=== PATIENT | male | born 1965 | race Caucasian/White ===

== ENCOUNTER 2016-06-23 13:48 | Emergency (ER) | payer MEDICARE ==
[~2016-06-23] VITALS: Ht 175.3 cm; Wt 100.0 kg
[~2016-06-23 13:48] MED LIST: ALBUTEROL0.83 MG/ML IH; ANTIVERT 25MG25 MG PO; ASPIR-LOW81 MG PO; ASPIRIN E.C. 8181 MG PO; CARDIZEM CD 12120 MG PO; CIPRO PO; CLEOCIN HC150 MG/CAP PO; COMBIRESP IH; COMBIVENT INH14.7 GM IH; DULERA1 ARO IH; FLONASE NASAL S16 GM NS; FLOVENT 220MCG7.9 GM IH; FORADIL AERO0.012 MG IH; INCRUSE EL62.5 MCG/A IH; IPRATROPIUM BROM3 M1 IH; LEVAQUIN 750MG750 M1 PO; LIPITOR 40MG TA40 MG PO; LORTAB 5/500 501 TAB PO; MEDROL 4MG DOSPA4 MG PO; METRONIDAZOLE500 MG PO; MOTRIN 200200 MG/TAB PO; MULTIPLE VITAMI1 CAP PO; MULTIPLE VITAMI1 TAB PO; NITROSTAT0.4 MG/TAB SL; NO HOME MEDICATIONS; PEPCID 20MG TAB20 MG PO; PERCOCET 325 MG1 TA2 PO; PREDNISONE20 MG PO; PROAIR HFA0.09 MG/AC IH; PROVENTIL0.09 MG/A1 IH; RT ADVAIR 128 DISKUS IH; RT SPIRIVA18 MCG IH; THEO-24 30300 MG/CAP PO; TOPROL XL 25MG25 MG PO; TUDORZA IH; TYLENOL 325MG325 MG PO; WELLBUTRIN SR150 M1 PO; ZESTRIL2.5 MG PO; ZITHROMAX Z PA250 MG PO
[2016-06-23 13:53] VITALS: TEMP 98
[2016-06-23 14:25] LABS: BASO % 0.5 % (0.0-2.0); EOS # 0.1 (0.0-0.7); EOS % 1.2 % (0-4.0); GRAN # 6.3 (1.4-6.5); GRAN % 73.2 % (42.2-75.2); HEMATOCRIT 51.3 % (42.0-52.0); HEMOGLOBIN 16.5 g/dl (13.5-18.0); LYMPH # 1.5 (1.2-3.4); LYMPH % 17.2 % (20.0-51.0); MEAN CELL VOLUME 94 fl (80.0-100.0); MEAN CORPUSCULAR HEMOGLOBIN 30 pg (27.0-31.0); MEAN CORPUSCULAR HGB CONC 32 g/dl (33.0-37.0); MEAN PLATELET VOLUME 11.3 fl (7.4-10.4); MONO # 0.7 (0.1-0.6); MONO % 7.8 % (1.7-9.3); PLATELET COUNT 133 K/mm3 (130-400); RED BLOOD COUNT 5.47 M/mm3 (4.20-5.60); WHITE BLOOD COUNT 8.6 K/mm3 (4.8-10.8)
[2016-06-23 14:54] LABS: PROTHROMBIN TIME 11.3 SECONDS (9.7-12.8)
[2016-06-23 14:57] LABS: PARTIAL THROMBOPLASTIN TIME 36.4 SECONDS (26.0-37.0)
[2016-06-23] MEDS ORDERED: ALEVE 220MG220 MG PO (15:00)
[2016-06-23 15:06] LABS: ADJUSTED CALCIUM 9.5 mg/dL (8.4-10.2); ALANINE AMINOTRANSFERASE 31 U/L (21-72); ALBUMIN 3.8 gm/dL (3.5-5.0); ALKALINE PHOSPHATASE 64 U/L (50-136); ANION GAP 11 mmol/L (7-16); BILIRUBIN,TOTAL 0.7 mg/dL (0.0-1.0); BLOOD UREA NITROGEN 13 mg/dL (9-20); CALCIUM 9.3 mg/dL (8.4-10.2); CARBON DIOXIDE 30 mmol/L (22-30); CHLORIDE 103 mmol/L (98-107); GLUCOSE 97 mg/dL (74-106); LIPASE 68 U/L (23-300); POTASSIUM 4.1 mmol/L (3.4-5.0); SODIUM 144 mmol/L (137-145); TOTAL PROTEIN 6.6 gm/dL (6.4-8.2)
[2016-06-23 15:17] LABS: B-TYPE NATRIURETIC PEPTIDE 36 pg/mL (0-125); TROPONIN-I < 0.012 ng/mL (0.000-0.034)
[2016-06-23 17:44] VITALS: BP 126/69; PULSE 90
== END 2016-06-23 17:51 | disposition home or self-care (01) ==
LOC: COL.ER 13:48
PROVIDERS: Emergency Medicine
DX: R55 Syncope and collapse (principal); I25.10 Atherosclerotic heart disease of native coronary artery without angina pectoris; I10 Essential (primary) hypertension; F17.210 Nicotine dependence, cigarettes, uncomplicated

== ENCOUNTER 2016-07-24 11:32 | Emergency (ER) | payer MEDICARE ==
[~2016-07-24] VITALS: Ht 175.3 cm; Wt 95.5 kg
[~2016-07-24 11:32] MED LIST changes: +ALEVE 220MG220 MG PO
[2016-07-24 11:33] VITALS: TEMP 98.6
[2016-07-24] MEDS ORDERED: CARTIA XT120 MG PO (11:48)
[2016-07-24 12:10] LABS: BASO % 0.4 % (0.0-2.0); EOS # 0.1 (0.0-0.7); EOS % 1.3 % (0-4.0); GRAN # 7.2 (1.4-6.5); HEMOGLOBIN 17.7 g/dl (13.5-18.0); LYMPH # 1.2 (1.2-3.4); LYMPH % 13.2 % (20.0-51.0); MEAN CELL VOLUME 93 fl (80.0-100.0); MEAN CORPUSCULAR HEMOGLOBIN 31 pg (27.0-31.0); MEAN CORPUSCULAR HGB CONC 33 g/dl (33.0-37.0); MEAN PLATELET VOLUME 11.5 fl (7.4-10.4); MONO # 0.5 (0.1-0.6); MONO % 5.8 % (1.7-9.3); PLATELET COUNT 127 K/mm3 (130-400); RED BLOOD COUNT 5.72 M/mm3 (4.20-5.60); REDCELL DISTRIBUTION WIDTH-CV 13.2 % (11.5-14.5); WHITE BLOOD COUNT 9.2 K/mm3 (4.8-10.8)
[2016-07-24 12:13] LABS: HEMATOCRIT 53.2 % (42.0-52.0)
[2016-07-24 12:25] LABS: ADJUSTED CALCIUM 9.4 mg/dL (8.4-10.2); ALANINE AMINOTRANSFERASE 29 U/L (21-72); ALBUMIN 4.4 gm/dL (3.5-5.0); ALKALINE PHOSPHATASE 69 U/L (50-136); ANION GAP 12 mmol/L (7-16); BILIRUBIN,TOTAL 0.8 mg/dL (0.0-1.0); BLOOD UREA NITROGEN 18 mg/dL (9-20); CALCIUM 9.7 mg/dL (8.4-10.2); CARBON DIOXIDE 28 mmol/L (22-30); CHLORIDE 103 mmol/L (98-107); GLUCOSE 126 mg/dL (74-106); POTASSIUM 4.5 mmol/L (3.4-5.0); SODIUM 143 mmol/L (137-145); TOTAL PROTEIN 7.4 gm/dL (6.4-8.2)
[2016-07-24 12:35] LABS: AMPHETAMINE URINE NEGATIVE; BARBITURATES URINE NEGATIVE; BENZODIAZEPINES URINE NEGATIVE; BUPRENORPHINE URINE NEGATIVE; METHADONE URINE NEGATIVE; OPIATES URINE NEGATIVE; OXYCODONE URINE NEGATIVE; PHENCYCLIDINE URINE NEGATIVE; PROPOXYPHENE URINE NEGATIVE; THC CANNABINOIDS URINE NEGATIVE
[2016-07-24 12:42] LABS: ACETAMINOPHEN < 10 ug/mL (10-30); SALICYLATE < 1.0 mg/dL
[2016-07-24 14:12] VITALS: BP 137/71; PULSE 84
== END 2016-07-24 14:13 | disposition home or self-care (01) ==
LOC: COL.ER 11:32
PROVIDERS: Physician Assistant
DX: F32.9 Major depressive disorder, single episode, unspecified (principal); R45.851 Suicidal ideations; J44.9 Chronic obstructive pulmonary disease, unspecified; F17.210 Nicotine dependence, cigarettes, uncomplicated

== ENCOUNTER 2016-09-07 14:46 | Inpatient (IN) | payer MEDICARE ==
[~2016-09-07] VITALS: Ht 175.3 cm; Wt 97.7 kg
[~2016-09-07 14:46] MED LIST changes: +CARTIA XT120 MG PO
[2016-09-07 16:02] LABS: BASO # 0.1 (0.0-0.2); BASO % 0.3 % (0.0-2.0); EOS % 0.1 % (0-4.0); GRAN # 15.8 (1.4-6.5); GRAN % 85.9 % (42.2-75.2); HEMATOCRIT 49.9 % (42.0-52.0); LYMPH # 1.2 (1.2-3.4); LYMPH % 6.6 % (20.0-51.0); MEAN CELL VOLUME 92 fl (80.0-100.0); MEAN CORPUSCULAR HEMOGLOBIN 31 pg (27.0-31.0); MEAN CORPUSCULAR HGB CONC 34 g/dl (33.0-37.0); MEAN PLATELET VOLUME 11.6 fl (7.4-10.4); MONO # 1.2 (0.1-0.6); MONO % 6.7 % (1.7-9.3); PLATELET COUNT 133 K/mm3 (130-400); RED BLOOD COUNT 5.45 M/mm3 (4.20-5.60); REDCELL DISTRIBUTION WIDTH-CV 13.3 % (11.5-14.5); WHITE BLOOD COUNT 18.4 K/mm3 (4.8-10.8)
[2016-09-07 16:10] LABS: ALANINE AMINOTRANSFERASE 33 U/L (21-72); ALBUMIN 4.4 gm/dL (3.5-5.0); ALKALINE PHOSPHATASE 76 U/L (50-136); ANION GAP 11 mmol/L (7-16); BILIRUBIN,TOTAL 1.2 mg/dL (0.0-1.0); BLOOD UREA NITROGEN 11 mg/dL (9-20); CALCIUM 9.3 mg/dL (8.4-10.2); CARBON DIOXIDE 26 mmol/L (22-30); CHLORIDE 100 mmol/L (98-107); CREATININE, serum 0.78 mg/dL (0.66-1.25); GLUCOSE 99 mg/dL (74-106); POTASSIUM 4.1 mmol/L (3.4-5.0); SODIUM 137 mmol/L (137-145); TOTAL PROTEIN 7.4 gm/dL (6.4-8.2)
[2016-09-07 16:19] LABS: B-TYPE NATRIURETIC PEPTIDE 155 pg/mL (0-125)
[2016-09-07 16:24] LABS: TROPONIN-I < 0.012 ng/mL (0.000-0.034)
[2016-09-07 18:03] VITALS: BP 131/57; PULSE 98; TEMP 97.9
[2016-09-07] MEDS ORDERED: PROZAC 20MG20 MG PO (18:04)
[2016-09-07 20:31] VITALS: BP 132/67; PULSE 92; TEMP 98.4
[2016-09-07 23:35] VITALS: BP 126/65; PULSE 82; TEMP 97.8
[2016-09-08 03:13] VITALS: BP 124/60; PULSE 66; TEMP 99
[2016-09-08 07:09] LABS: ADD PATHOLOGY DIFF REVIEW NO
[2016-09-08 07:32] LABS: CALCIUM 8.4 mg/dL (8.4-10.2); CREATININE, serum 0.63 mg/dL (0.66-1.25); MAGNESIUM 2.4 mg/dL (1.6-2.3); POTASSIUM 4.4 mmol/L (3.4-5.0)
[2016-09-08 07:42] VITALS: BP 115/73; PULSE 70; TEMP 97
[2016-09-08 07:45] LABS: HEMATOCRIT 47.5 % (42.0-52.0); HEMOGLOBIN 15.2 g/dl (13.5-18.0); MEAN CELL VOLUME 96 fl (80.0-100.0); MEAN CORPUSCULAR HEMOGLOBIN 31 pg (27.0-31.0); MEAN CORPUSCULAR HGB CONC 32 g/dl (33.0-37.0); MEAN PLATELET VOLUME 11.9 fl (7.4-10.4); PLATELET COUNT 128 K/mm3 (130-400); RED BLOOD COUNT 4.97 M/mm3 (4.20-5.60); REDCELL DISTRIBUTION WIDTH-CV 13.4 % (11.5-14.5); WHITE BLOOD COUNT 15.5 K/mm3 (4.8-10.8)
[2016-09-08] MEDS ORDERED: LEVAQUIN 750MG750 M1 PO (08:40)
[2016-09-08] MEDS ORDERED: PREDNISONE20 MG PO (08:40)
[2016-09-08 09:13] LABS: BAND 5 % (0-10); NEUTROPHILS 87 % (42.0-75.2); TOTAL CELLS COUNTED 100
[2016-09-08 09:14] LABS: PLATELET ESTIMATE NORMAL (NORMAL)
[2016-09-08 11:28] VITALS: BP 136/68; PULSE 82; TEMP 97.7
== END 2016-09-08 13:43 | disposition home or self-care (01) | DRG 190 ==
LOC: COL.ER 14:46 → MEDICAL 16:34
PROVIDERS: Emergency Medicine; Internal Medicine
DX: J44.0 Chronic obstructive pulmonary disease with (acute) lower respiratory infection (principal); J18.9 Pneumonia, unspecified organism; F17.210 Nicotine dependence, cigarettes, uncomplicated; I25.10 Atherosclerotic heart disease of native coronary artery without angina pectoris; I25.2 Old myocardial infarction
CPT/HCPCS: 99222-AI; 99239; J0456; J0692; J0696; J1650; J1956; J7030; J7050; J7512

== ENCOUNTER 2017-05-27 15:49 | Inpatient (IN) | payer OTHER, MEDICARE ==
[~2017-05-27] VITALS: Ht 175.3 cm; Wt 109.2 kg
[~2017-05-27 15:49] MED LIST changes: +PROZAC 20MG20 MG PO
[2017-05-27 16:49] LABS: BASO # 0.1 (0.0-0.2); BASO % 0.9 % (0.0-2.0); EOS # 0.2 (0.0-0.7); EOS % 2.5 % (0-4.0); GRAN # 4.2 (1.4-6.5); GRAN % 63.2 % (42.2-75.2); HEMATOCRIT 50.7 % (42.0-52.0); HEMOGLOBIN 16.6 g/dl (13.5-18.0); LYMPH # 1.6 (1.2-3.4); LYMPH % 24.3 % (20.0-51.0); MEAN CELL VOLUME 95 fl (80.0-100.0); MEAN CORPUSCULAR HEMOGLOBIN 31 pg (27.0-31.0); MEAN CORPUSCULAR HGB CONC 33 g/dl (33.0-37.0); MEAN PLATELET VOLUME 10.8 fl (7.4-10.4); MONO # 0.6 (0.1-0.6); MONO % 8.8 % (1.7-9.3); PLATELET COUNT 134 K/mm3 (130-400); RED BLOOD COUNT 5.32 M/mm3 (4.20-5.60); REDCELL DISTRIBUTION WIDTH-CV 12.3 % (11.5-14.5)
[2017-05-27 16:54] LABS: ALANINE AMINOTRANSFERASE 45 U/L (21-72); ALBUMIN 4.5 gm/dL (3.5-5.0); ALKALINE PHOSPHATASE 81 U/L (50-136); ANION GAP 9 mmol/L (7-16); AST,SGOT 33 U/L (15-37); BILIRUBIN,TOTAL 0.5 mg/dL (0.0-1.0); BLOOD UREA NITROGEN 18 mg/dL (9-20); CALCIUM 9.5 mg/dL (8.4-10.2); CARBON DIOXIDE 30 mmol/L (22-30); CHLORIDE 101 mmol/L (98-107); CREATININE, serum 0.82 mg/dL (0.66-1.25); GLUCOSE 82 mg/dL (74-106); POTASSIUM 4.2 mmol/L (3.4-5.0); SODIUM 140 mmol/L (137-145); TOTAL PROTEIN 7.3 gm/dL (6.4-8.2)
[2017-05-27 17:07] LABS: TROPONIN-I < 0.012 ng/mL (0.000-0.034)
[2017-05-27 17:30] LABS: INR 0.9 (0.8-3.0); PROTHROMBIN TIME 10.6 SECONDS (9.7-12.8)
[2017-05-27 17:33] LABS: PARTIAL THROMBOPLASTIN TIME 34.7 SECONDS (26.0-37.0)
[2017-05-27 17:39] LABS: D-DIMER < 200.00 ng/mLDDu (200-230)
[2017-05-27 18:11] LABS: ARTERIAL BLD GAS O2 SATURATION 92.3 % (92-100); ARTERIAL BLD GAS TCO2 CT 31.2; ARTERIAL BLOOD GAS BASE EXCESS 2.8 (-2-2); ARTERIAL BLOOD GAS HCO3 29.6 meq/L (22-26); ARTERIAL BLOOD GAS PCO2 52.9 mmHg (35-45); ARTERIAL BLOOD GAS PO2 61.7 mmHg (80-100); ARTERIAL BLOOD GAS pH 7.37 (7.35-7.45)
[2017-05-27 21:26] VITALS: BP 129/70; PULSE 67; TEMP 97.7
[2017-05-28 03:01] VITALS: BP 133/62; PULSE 80; TEMP 97.1
[2017-05-28 05:30] VITALS: BP 135/65; PULSE 77; TEMP 97
[2017-05-28 08:13] LABS: ARTERIAL BLD GAS O2 SATURATION 94.3 % (92-100); ARTERIAL BLD GAS TCO2 CT 26.8; ARTERIAL BLOOD GAS BASE EXCESS -1.6 (-2-2); ARTERIAL BLOOD GAS HCO3 25.2 meq/L (22-26); ARTERIAL BLOOD GAS PO2 74.4 mmHg (80-100); ARTERIAL BLOOD GAS pH 7.32 (7.35-7.45)
[2017-05-28 08:16] LABS: HEMATOCRIT 50.7 % (42.0-52.0); HEMOGLOBIN 16.5 g/dl (13.5-18.0); MEAN CELL VOLUME 97 fl (80.0-100.0); MEAN CORPUSCULAR HEMOGLOBIN 32 pg (27.0-31.0); MEAN CORPUSCULAR HGB CONC 33 g/dl (33.0-37.0); MEAN PLATELET VOLUME 11.8 fl (7.4-10.4); PLATELET COUNT 127 K/mm3 (130-400); RED BLOOD COUNT 5.24 M/mm3 (4.20-5.60); REDCELL DISTRIBUTION WIDTH-CV 12.3 % (11.5-14.5)
[2017-05-28 08:29] LABS: CHOLESTEROL 233 mg/dL (120-200); CHOLESTEROL RISK RATIO 6.2; HDL CHOLESTEROL 37 mg/dL; LDL CHOLESTEROL 178 mg/dL; TRIGLYCERIDE 89 mg/dL
[2017-05-28 08:30] LABS: CALCIUM 8.9 mg/dL (8.4-10.2); CREATININE, serum 0.72 mg/dL (0.66-1.25); POTASSIUM 4.4 mmol/L (3.4-5.0)
[2017-05-28 08:31] LABS: ACETAMINOPHEN < 10 ug/mL (10-30)
[2017-05-28 08:45] LABS: BAND 3 % (0-10); BASOPHIL 1 % (0-2); LYMPHOCYTE 7 % (20.0-51.0); NEUTROPHILS 89 % (42.0-75.2); PLATELET ESTIMATE DECREASED (NORMAL)
[2017-05-28 09:34] VITALS: BP 125/58; PULSE 103; TEMP 98.5
[2017-05-28 13:32] VITALS: BP 128/60; PULSE 98; TEMP 97.6
[2017-05-28 17:14] VITALS: BP 116/56; PULSE 108; TEMP 98.3
[2017-05-28 22:32] VITALS: BP 132/48; PULSE 113; TEMP 98.8
[2017-05-29 02:28] VITALS: BP 127/45; PULSE 88; TEMP 98.2
[2017-05-29 05:31] VITALS: BP 128/65; PULSE 96; TEMP 98.2
[2017-05-29 10:06] VITALS: BP 115/62; PULSE 96; TEMP 98
[2017-05-29] MEDS ORDERED: MEDROL 4MG DOSPA4 MG PO (10:51)
[2017-05-30] MEDS ORDERED: B COMPLEX #11 TA1 PO (06:46)
[2017-05-30] MEDS ORDERED: PROZAC 20MG20 MG PO (09:50)
[2017-05-31] MEDS ORDERED: NITROSTAT0.4 MG/TAB SL (11:58)
[2017-05-31] MEDS ORDERED: TYLENOL 325MG325 MG PO (11:59)
[2017-05-31] MEDS ORDERED: VENTOLIN0.09 MG IH (12:00)
== END 2017-05-29 11:20 | disposition home or self-care (01) | DRG 191 ==
LOC: COL.ER 15:49 → SURG 18:47
PROVIDERS: Family Medicine; Nurse Practitioner
DX: J44.1 Chronic obstructive pulmonary disease with (acute) exacerbation (principal); E87.2 Acidosis; I25.10 Atherosclerotic heart disease of native coronary artery without angina pectoris; G47.33 Obstructive sleep apnea (adult) (pediatric); F17.210 Nicotine dependence, cigarettes, uncomplicated; Z91.19 Patient's noncompliance with other medical treatment and regimen
CPT/HCPCS: 99223-AI; 99232-AI; 99239; J0696; J1885; J2930; J7030; J7512

== ENCOUNTER 2017-09-27 15:14 | Emergency (ER) | payer OTHER, MEDICARE ==
[~2017-09-27] VITALS: Ht 175.3 cm; Wt 113.6 kg
[~2017-09-27 15:14] MED LIST changes: +B COMPLEX #11 TA1 PO; +VENTOLIN0.09 MG IH
[2017-09-27 15:17] VITALS: TEMP 98.7
[2017-09-27] MEDS ORDERED: LIPITOR 40MG TA40 MG PO (15:33)
[2017-09-27 15:41] LABS: BASO # 0.1 (0.0-0.2); EOS # 0.3 (0.0-0.7); EOS % 3.7 % (0-4.0); GRAN % 64.2 % (42.2-75.2); HEMATOCRIT 47.5 % (42.0-52.0); HEMOGLOBIN 15.6 g/dl (13.5-18.0); LYMPH # 1.7 (1.2-3.4); LYMPH % 21.8 % (20.0-51.0); MEAN CELL VOLUME 94 fl (80.0-100.0); MEAN CORPUSCULAR HEMOGLOBIN 31 pg (27.0-31.0); MEAN CORPUSCULAR HGB CONC 33 g/dl (33.0-37.0); MEAN PLATELET VOLUME 11.1 fl (7.4-10.4); MONO # 0.7 (0.1-0.6); MONO % 9.2 % (1.7-9.3); PLATELET COUNT 143 K/mm3 (130-400); RED BLOOD COUNT 5.07 M/mm3 (4.20-5.60); REDCELL DISTRIBUTION WIDTH-CV 12.4 % (11.5-14.5)
[2017-09-27 15:53] LABS: ALANINE AMINOTRANSFERASE 57 U/L (21-72); ALBUMIN 4.3 gm/dL (3.5-5.0); ALKALINE PHOSPHATASE 83 U/L (50-136); ANION GAP 10 mmol/L (7-16); AST,SGOT 46 U/L (15-37); BILIRUBIN,TOTAL 0.5 mg/dL (0.0-1.0); BLOOD UREA NITROGEN 18 mg/dL (9-20); C-REACTIVE PROTEIN 0.8 mg/dL (0.0-0.9); CALCIUM 9.6 mg/dL (8.4-10.2); CARBON DIOXIDE 30 mmol/L (22-30); CHLORIDE 103 mmol/L (98-107); CREATININE, serum 0.79 mg/dL (0.66-1.25); GLUCOSE 100 mg/dL (74-106); SODIUM 142 mmol/L (137-145); TOTAL PROTEIN 7.2 gm/dL (6.4-8.2)
[2017-09-27 16:02] LABS: TROPONIN-I < 0.012 ng/mL (0.000-0.034)
[2017-09-27 16:15] LABS: COLLECTION METHOD CLEAN CATCH
[2017-09-27 16:21] LABS: AMORPHOUS CRYSTAL Present /uL; MUCOUS Present /lpf; PH 6 (5-8); SQUAMOUS EPITHELIAL 0-2 /hpf; URINE APPEARANCE Clear; URINE BACTERIA None Seen /hpf; URINE BILIRUBIN Negative (NEGATIVE); URINE BLOOD Negative (NEGATIVE); URINE COLOR Yellow; URINE GLUCOSE Negative (NEGATIVE); URINE KETONE Negative (NEGATIVE); URINE LEUKOCYTE ESTERASE Negative (NEGATIVE); URINE NITRATE Negative (NEGATIVE); URINE PROTEIN(semi-quant) Negative (NEGATIVE); URINE RBC 0-2 /hpf; URINE UROBILINOGEN Negative (NEGATIVE)
[2017-09-27 18:04] VITALS: BP 145/85; PULSE 70
== END 2017-09-27 18:06 | disposition home or self-care (01) ==
LOC: COL.ER 15:14
PROVIDERS: Emergency Medicine
DX: T67.5XXA Heat exhaustion, unspecified, initial encounter (principal); I25.10 Atherosclerotic heart disease of native coronary artery without angina pectoris; J44.9 Chronic obstructive pulmonary disease, unspecified; F32.9 Major depressive disorder, single episode, unspecified; I48.91 Unspecified atrial fibrillation; F17.210 Nicotine dependence, cigarettes, uncomplicated; Z79.82 Long term (current) use of aspirin; Z79.51 Long term (current) use of inhaled steroids
CPT/HCPCS: J2405; J7030

== ENCOUNTER 2017-10-04 11:36 | Emergency (ER) | payer OTHER, MEDICARE ==
[~2017-10-04] VITALS: Ht 175.3 cm; Wt 113.6 kg
[2017-10-04 11:36] VITALS: TEMP 97.1
[2017-10-04 11:58] LABS: COLLECTION METHOD CLEAN CATCH
[2017-10-04 12:04] LABS: BASO # 0.1 (0.0-0.2); BASO % 0.8 % (0.0-2.0); EOS # 0.2 (0.0-0.7); EOS % 2.7 % (0-4.0); GRAN # 5.3 (1.4-6.5); GRAN % 67.2 % (42.2-75.2); HEMATOCRIT 49.5 % (42.0-52.0); HEMOGLOBIN 16.2 g/dl (13.5-18.0); LYMPH # 1.6 (1.2-3.4); LYMPH % 20.2 % (20.0-51.0); MEAN CELL VOLUME 94 fl (80.0-100.0); MEAN CORPUSCULAR HEMOGLOBIN 31 pg (27.0-31.0); MEAN CORPUSCULAR HGB CONC 33 g/dl (33.0-37.0); MONO # 0.7 (0.1-0.6); MONO % 8.8 % (1.7-9.3); PLATELET COUNT 150 K/mm3 (130-400); RED BLOOD COUNT 5.27 M/mm3 (4.20-5.60); REDCELL DISTRIBUTION WIDTH-CV 12.5 % (11.5-14.5)
[2017-10-04 12:05] LABS: PH 8 (5-8); SQUAMOUS EPITHELIAL 0-2 /hpf; URINE APPEARANCE Clear; URINE BACTERIA None Seen /hpf; URINE BILIRUBIN Negative (NEGATIVE); URINE BLOOD Negative (NEGATIVE); URINE COLOR Straw; URINE GLUCOSE Negative (NEGATIVE); URINE KETONE Negative (NEGATIVE); URINE LEUKOCYTE ESTERASE Negative (NEGATIVE); URINE NITRATE Negative (NEGATIVE); URINE PROTEIN(semi-quant) Negative (NEGATIVE); URINE RBC 0-2 /hpf; URINE UROBILINOGEN Negative (NEGATIVE)
[2017-10-04 12:15] LABS: ALANINE AMINOTRANSFERASE 44 U/L (21-72); ALBUMIN 4.4 gm/dL (3.5-5.0); ALKALINE PHOSPHATASE 86 U/L (50-136); ANION GAP 10 mmol/L (7-16); AST,SGOT 31 U/L (15-37); BILIRUBIN,TOTAL 0.6 mg/dL (0.0-1.0); BLOOD UREA NITROGEN 21 mg/dL (9-20); CALCIUM 9.6 mg/dL (8.4-10.2); CARBON DIOXIDE 28 mmol/L (22-30); CHLORIDE 102 mmol/L (98-107); CREATININE, serum 0.84 mg/dL (0.66-1.25); GLUCOSE 105 mg/dL (74-106); POTASSIUM 4.3 mmol/L (3.4-5.0); SODIUM 140 mmol/L (137-145); TOTAL PROTEIN 7.3 gm/dL (6.4-8.2)
[2017-10-04 12:27] LABS: TROPONIN-I < 0.012 ng/mL (0.000-0.034)
[2017-10-04] MEDS ORDERED: ANTIVERT 25MG25 MG PO (15:35)
[2017-10-04] MEDS ORDERED: RT ALBUTER2.5 MG/0.5 IH (15:35)
[2017-10-04] MEDS ORDERED: PREDNISONE10 MG PO (15:36)
[2017-10-04 15:44] VITALS: BP 142/81; PULSE 74
== END 2017-10-04 15:45 | disposition home or self-care (01) ==
LOC: COL.ER 11:36
PROVIDERS: Emergency Medicine
DX: R42 Dizziness and giddiness (principal); J44.9 Chronic obstructive pulmonary disease, unspecified; I25.10 Atherosclerotic heart disease of native coronary artery without angina pectoris; F17.210 Nicotine dependence, cigarettes, uncomplicated; Z98.890 Other specified postprocedural states; Z79.51 Long term (current) use of inhaled steroids
CPT/HCPCS: J7030; J7512

== ENCOUNTER → 2017-11-14 | Outpatient (CLI) | payer OTHER, MEDICARE ==
[~2017-11-14] MED LIST changes: +PREDNISONE10 MG PO; +RT ALBUTER2.5 MG/0.5 IH
== END ==
LOC: COL.RAD 05:33
DX: H91.92 Unspecified hearing loss, left ear (principal)
CPT/HCPCS: A9585

== ENCOUNTER 2018-01-10 15:54 | Emergency (ER) | payer OTHER, MEDICARE ==
[~2018-01-10] VITALS: Ht 69 cm; Wt 109.1 kg
[2018-01-10 15:58] VITALS: TEMP 97.7
[2018-01-10] MEDS ORDERED: ALEVE 220MG220 MG PO (16:11)
[2018-01-10 16:47] LABS: BASO # 0.1 (0.0-0.2); BASO % 0.6 % (0.0-2.0); EOS # 0.2 (0.0-0.7); EOS % 1.9 % (0-4.0); GRAN # 5.3 (1.4-6.5); GRAN % 67.2 % (42.2-75.2); HEMATOCRIT 49.3 % (42.0-52.0); HEMOGLOBIN 15.8 g/dl (13.5-18.0); LYMPH # 1.7 (1.2-3.4); MEAN CELL VOLUME 94 fl (80.0-100.0); MEAN CORPUSCULAR HEMOGLOBIN 30 pg (27.0-31.0); MEAN CORPUSCULAR HGB CONC 32 g/dl (33.0-37.0); MEAN PLATELET VOLUME 11.1 fl (7.4-10.4); MONO # 0.7 (0.1-0.6); PLATELET COUNT 142 K/mm3 (130-400); RED BLOOD COUNT 5.22 M/mm3 (4.20-5.60)
[2018-01-10 16:52] LABS: PROTHROMBIN TIME 11.6 SECONDS (9.7-12.8)
[2018-01-10 16:59] LABS: ALANINE AMINOTRANSFERASE 34 U/L (21-72); ALBUMIN 4.1 gm/dL (3.5-5.0); ALKALINE PHOSPHATASE 65 U/L (50-136); ANION GAP 1 mmol/L (7-16); AST,SGOT 29 U/L (15-37); BILIRUBIN,TOTAL 0.4 mg/dL (0.0-1.0); BLOOD UREA NITROGEN 17 mg/dL (9-20); CALCIUM 9.2 mg/dL (8.4-10.2); CARBON DIOXIDE 32 mmol/L (22-30); CHLORIDE 107 mmol/L (98-107); CREATININE, serum 0.79 mg/dL (0.66-1.25); GLUCOSE 105 mg/dL (74-106); POTASSIUM 4.7 mmol/L (3.4-5.0); SODIUM 140 mmol/L (137-145); TOTAL PROTEIN 6.8 gm/dL (6.4-8.2)
[2018-01-10 17:13] LABS: TROPONIN-I < 0.012 ng/mL (0.000-0.034)
[2018-01-10 18:41] LABS: ARTERIAL BLD GAS O2 SATURATION 90.7 % (92-100); ARTERIAL BLD GAS TCO2 CT 28.8; ARTERIAL BLOOD GAS BASE EXCESS 0.6 (-2-2); ARTERIAL BLOOD GAS HCO3 27.3 meq/L (22-26); ARTERIAL BLOOD GAS PO2 59.3 mmHg (80-100); ARTERIAL BLOOD GAS pH 7.35 (7.35-7.45)
[2018-01-10] MEDS ORDERED: ZITHROMAX500 M2 PO (19:59)
[2018-01-10] MEDS ORDERED: PREDNISONE20 MG PO (19:59)
[2018-01-10 20:17] VITALS: BP 116/81; PULSE 89
== END 2018-01-10 20:17 | disposition home or self-care (01) ==
LOC: COL.ER 15:54
PROVIDERS: Emergency Medicine
DX: J44.1 Chronic obstructive pulmonary disease with (acute) exacerbation (principal); I10 Essential (primary) hypertension; E78.5 Hyperlipidemia, unspecified; I25.10 Atherosclerotic heart disease of native coronary artery without angina pectoris; Z79.51 Long term (current) use of inhaled steroids; Z79.82 Long term (current) use of aspirin
CPT/HCPCS: J2930; J7030

== ENCOUNTER 2018-03-09 03:52 | Inpatient (IN) | payer OTHER, MEDICARE ==
[~2018-03-09] VITALS: Ht 175.3 cm; Wt 106.8 kg
[2018-03-09] VITALS (7 sets, daily range): BP systolic 116–132; BP diastolic 62–75; PULSE 69–106; TEMP 97.7–98.5
[~2018-03-09 03:52] MED LIST changes: +ZITHROMAX500 M2 PO
[2018-03-09 04:19] LABS: BASO # 0.1 (0.0-0.2); BASO % 0.6 % (0.0-2.0); EOS # 0.2 (0.0-0.7); EOS % 2.1 % (0-4.0); GRAN # 5.9 (1.4-6.5); GRAN % 69.7 % (42.2-75.2); HEMATOCRIT 45.1 % (42.0-52.0); HEMOGLOBIN 14.6 g/dl (13.5-18.0); LYMPH # 1.6 (1.2-3.4); LYMPH % 18.5 % (20.0-51.0); MEAN CELL VOLUME 94 fl (80.0-100.0); MEAN CORPUSCULAR HEMOGLOBIN 30 pg (27.0-31.0); MEAN CORPUSCULAR HGB CONC 32 g/dl (33.0-37.0); MEAN PLATELET VOLUME 10.9 fl (7.4-10.4); MONO # 0.8 (0.1-0.6); MONO % 8.9 % (1.7-9.3); PLATELET COUNT 153 K/mm3 (130-400); RED BLOOD COUNT 4.81 M/mm3 (4.20-5.60); REDCELL DISTRIBUTION WIDTH-CV 12.7 % (11.5-14.5)
[2018-03-09] MEDS ORDERED: FLOMAX 0.40.4 MG/CAP PO (04:19)
[2018-03-09] MEDS ORDERED: DALIRESP500 MCG PO (04:20)
[2018-03-09 04:29] LABS: ALANINE AMINOTRANSFERASE 36 U/L (21-72); ALBUMIN 3.9 gm/dL (3.5-5.0); ALKALINE PHOSPHATASE 74 U/L (50-136); ANION GAP 4 mmol/L (7-16); AST,SGOT 29 U/L (15-37); BILIRUBIN,TOTAL 0.2 mg/dL (0.0-1.0); BLOOD UREA NITROGEN 19 mg/dL (9-20); CALCIUM 9.5 mg/dL (8.4-10.2); CARBON DIOXIDE 30 mmol/L (22-30); CHLORIDE 107 mmol/L (98-107); CREATININE, serum 0.92 mg/dL (0.66-1.25); GLUCOSE 133 mg/dL (74-106); POTASSIUM 4.1 mmol/L (3.4-5.0); SODIUM 141 mmol/L (137-145); TOTAL PROTEIN 6.5 gm/dL (6.4-8.2)
[2018-03-09 04:46] LABS: TROPONIN-I < 0.012 ng/mL (0.000-0.034)
[2018-03-09 04:56] LABS: ARTERIAL BLD GAS O2 SATURATION 85.6 % (92-100); ARTERIAL BLD GAS TCO2 CT 31.3; ARTERIAL BLOOD GAS BASE EXCESS 3.6 (-2-2); ARTERIAL BLOOD GAS HCO3 29.7 meq/L (22-26); ARTERIAL BLOOD GAS PCO2 50.5 mmHg (35-45); ARTERIAL BLOOD GAS PO2 50.4 mmHg (80-100); ARTERIAL BLOOD GAS pH 7.39 (7.35-7.45)
[2018-03-09 08:54] LABS: PROTHROMBIN TIME 11.5 SECONDS (9.7-12.8)
[2018-03-09 08:56] LABS: PARTIAL THROMBOPLASTIN TIME 38.1 SECONDS (26.0-37.0)
[2018-03-09 09:00] LABS: MAGNESIUM 2.2 mg/dL (1.6-2.3)
[2018-03-09 09:16] LABS: CHOLESTEROL RISK RATIO 3.7
[2018-03-09 09:23] LABS: ARTERIAL BLD GAS O2 SATURATION 93.9 % (92-100); ARTERIAL BLOOD GAS BASE EXCESS -1.1 (-2-2); ARTERIAL BLOOD GAS HCO3 24.6 meq/L (22-26); ARTERIAL BLOOD GAS PCO2 44.7 mmHg (35-45); ARTERIAL BLOOD GAS PO2 73.7 mmHg (80-100); ARTERIAL BLOOD GAS pH 7.36 (7.35-7.45)
[2018-03-09] MEDS ORDERED: PREDNISONE20 MG PO (15:30)
== END 2018-03-09 16:23 | disposition home or self-care (01) | DRG 189 ==
LOC: COL.ER 03:52 → MEDICAL 05:23
PROVIDERS: Emergency Medicine; Nurse Practitioner Family
DX: J96.21 Acute and chronic respiratory failure with hypoxia (principal); J44.1 Chronic obstructive pulmonary disease with (acute) exacerbation; J96.22 Acute and chronic respiratory failure with hypercapnia; I25.10 Atherosclerotic heart disease of native coronary artery without angina pectoris; I10 Essential (primary) hypertension; G47.33 Obstructive sleep apnea (adult) (pediatric); F17.210 Nicotine dependence, cigarettes, uncomplicated; E78.5 Hyperlipidemia, unspecified; N40.0 Benign prostatic hyperplasia without lower urinary tract symptoms
CPT/HCPCS: A9502; J1650; J2785; J2930; J7030; J7512

== ENCOUNTER 2019-11-26 22:09 | Emergency (ER) | payer MEDICARE ==
[~2019-11-26 22:09] MED LIST changes: +DALIRESP500 MCG PO; +DOXYCYCLINE 10100 MG PO; +FLOMAX 0.40.4 MG/CAP PO
[2019-11-26 22:10] VITALS: TEMP 99.7
[2019-11-26 22:27] LABS: BASO # 0.1 (0.0-0.2); BASO % 0.5 % (0.0-2.0); EOS # 0.1 (0.0-0.7); EOS % 1.4 % (0-4.0); GRAN # 7.1 (1.4-6.5); GRAN % 75.2 % (42.2-75.2); HEMOGLOBIN 16.2 g/dl (13.5-18.0); LYMPH # 1.5 (1.2-3.4); LYMPH % 16.1 % (20.0-51.0); MEAN CELL VOLUME 95 fl (80.0-100.0); MEAN CORPUSCULAR HEMOGLOBIN 31 pg (27.0-31.0); MEAN CORPUSCULAR HGB CONC 32 g/dl (33.0-37.0); MEAN PLATELET VOLUME 11.4 fl (7.4-10.4); MONO # 0.6 (0.1-0.6); MONO % 6.6 % (1.7-9.3); PLATELET COUNT 126 K/mm3 (130-400); RED BLOOD COUNT 5.27 M/mm3 (4.20-5.60); REDCELL DISTRIBUTION WIDTH-CV 12.9 % (11.5-14.5)
[2019-11-26 22:30] LABS: PROTHROMBIN TIME 11.4 SECONDS (9.7-12.8)
[2019-11-26 22:33] LABS: PARTIAL THROMBOPLASTIN TIME 34.3 SECONDS (26.0-37.0)
[2019-11-26 22:34] LABS: D-DIMER < 200.00 ng/mLDDu (200-230)
[2019-11-26 22:36] LABS: ALANINE AMINOTRANSFERASE 28 U/L (4-49); ALBUMIN 4.3 gm/dL (3.5-5.0); ALKALINE PHOSPHATASE 64 U/L (50-136); ANION GAP 8 mmol/L (7-16); AST,SGOT 26 U/L (15-37); BILIRUBIN,TOTAL 0.4 mg/dL (0.0-1.0); BLOOD UREA NITROGEN 18 mg/dL (9-20); C-REACTIVE PROTEIN 0.8 mg/dL (0.0-0.9); CALCIUM 9.2 mg/dL (8.4-10.2); CARBON DIOXIDE 30 mmol/L (22-30); CHLORIDE 104 mmol/L (98-107); GLUCOSE 130 mg/dL (74-106); LIPASE 58 U/L (23-300); POTASSIUM 3.9 mmol/L (3.4-5.0); SODIUM 142 mmol/L (137-145); TOTAL PROTEIN 7.2 gm/dL (6.4-8.2)
[2019-11-26 22:54] LABS: TROPONIN-I < 0.012 ng/mL (0.000-0.035)
[2019-11-26] MEDS ORDERED: PREDNISONE20 MG PO (22:56)
[2019-11-27 02:16] VITALS: BP 105/54; PULSE 88
== END 2019-11-27 02:16 | disposition home or self-care (01) ==
LOC: COL.ER 22:09
PROVIDERS: Emergency Medicine
DX: S00.83XA Contusion of other part of head, initial encounter (principal); R55 Syncope and collapse; J44.9 Chronic obstructive pulmonary disease, unspecified; R06.02 Shortness of breath; R07.9 Chest pain, unspecified; I25.10 Atherosclerotic heart disease of native coronary artery without angina pectoris; E78.00 Pure hypercholesterolemia, unspecified; I10 Essential (primary) hypertension; F17.210 Nicotine dependence, cigarettes, uncomplicated; Z79.52 Long term (current) use of systemic steroids; Z79.82 Long term (current) use of aspirin; W01.10XA Fall on same level from slipping, tripping and stumbling with subsequent striking against unspecified object, initial encounter
CPT/HCPCS: J7512

== ENCOUNTER 2019-12-03 21:30 | Emergency (ER) | payer MEDICARE ==
[~2019-12-03] VITALS: Ht 175.3 cm; Wt 109.1 kg
[2019-12-03 21:38] VITALS: TEMP 99.7
[2019-12-03 22:01] LABS: BASO # 0.1 (0.0-0.2); BASO % 0.5 % (0.0-2.0); EOS # 0.1 (0.0-0.7); EOS % 1.1 % (0-4.0); GRAN # 9.1 (1.4-6.5); GRAN % 75.1 % (42.2-75.2); HEMOGLOBIN 17.8 g/dl (13.5-18.0); LYMPH % 16.3 % (20.0-51.0); MEAN CELL VOLUME 94 fl (80.0-100.0); MEAN CORPUSCULAR HEMOGLOBIN 31 pg (27.0-31.0); MEAN CORPUSCULAR HGB CONC 33 g/dl (33.0-37.0); MEAN PLATELET VOLUME 10.9 fl (7.4-10.4); MONO # 0.8 (0.1-0.6); MONO % 6.6 % (1.7-9.3); PLATELET COUNT 149 K/mm3 (130-400); RED BLOOD COUNT 5.81 M/mm3 (4.20-5.60)
[2019-12-03 22:02] LABS: HEMATOCRIT 54.8 % (42.0-52.0)
[2019-12-03 22:04] LABS: INR 0.9 (0.8-3.0); PROTHROMBIN TIME 10.5 SECONDS (9.7-12.8)
[2019-12-03 22:07] LABS: PARTIAL THROMBOPLASTIN TIME 38.7 SECONDS (26.0-37.0)
[2019-12-03 22:09] LABS: ALANINE AMINOTRANSFERASE 28 U/L (4-49); ALBUMIN 4.6 gm/dL (3.5-5.0); ALKALINE PHOSPHATASE 78 U/L (50-136); ANION GAP 7 mmol/L (7-16); AST,SGOT 25 U/L (15-37); BILIRUBIN,TOTAL 0.5 mg/dL (0.0-1.0); BLOOD UREA NITROGEN 18 mg/dL (9-20); CALCIUM 10.2 mg/dL (8.4-10.2); CARBON DIOXIDE 33 mmol/L (22-30); CHLORIDE 100 mmol/L (98-107); CREATININE, serum 0.85 (0.66-1.25); GLUCOSE 151 mg/dL (74-106); POTASSIUM 4.1 mmol/L (3.4-5.0); SODIUM 141 mmol/L (137-145); TOTAL PROTEIN 7.7 gm/dL (6.4-8.2)
[2019-12-03 22:21] LABS: TROPONIN-I < 0.012 ng/mL (0.000-0.035)
[2019-12-03] MEDS ORDERED: CARDIZEM CD 18180 MG PO (23:14)
[2019-12-03] MEDS ORDERED: ZITHROMAX Z PA250 MG PO (23:14)
[2019-12-03] MEDS ORDERED: PREDNISONE20 MG PO (23:14)
[2019-12-04 02:10] VITALS: BP 118/67; PULSE 90
== END 2019-12-04 02:20 | disposition home or self-care (01) ==
LOC: COL.ER 21:30
PROVIDERS: Family Medicine
DX: J44.1 Chronic obstructive pulmonary disease with (acute) exacerbation (principal); J40 Bronchitis, not specified as acute or chronic; F17.210 Nicotine dependence, cigarettes, uncomplicated; Z79.52 Long term (current) use of systemic steroids; Z79.82 Long term (current) use of aspirin; Z79.51 Long term (current) use of inhaled steroids
CPT/HCPCS: J7120; J7512

== ENCOUNTER 2020-05-07 08:48 | Day surgery (SDC) | payer MEDICARE ==
[~2020-05-07] VITALS: Ht 175.3 cm; Wt 116.5 kg
[2020-05-07] VITALS (11 sets, daily range): BP systolic 115–155; BP diastolic 72–87; PULSE 79–97; TEMP 98.5
[~2020-05-07 08:48] MED LIST changes: +CARDIZEM CD 18180 MG PO; +K-TAB20 PO; +LASIX 40MG TABL40 MG PO; +OXYGEN NASAL.CANN; +TOPROL XL 50MG50 MG PO; +TRELEGY ELLIPT1 EACH IH
--- NOTE | 2020-05-07 10:00 | NUR ---
Reported to jacques,Pt placed on oxygen at 2l/nc.Per pt he wears oxygen at home at night.Lying in bed,pt SATS are 84-85% on room air.
[2020-05-07 10:08] LABS: HEMATOCRIT 49.9 % (42.0-52.0); HEMOGLOBIN 16.5 g/dl (13.5-18.0); MEAN CELL VOLUME 93 fl (80.0-100.0); MEAN CORPUSCULAR HEMOGLOBIN 31 pg (27.0-31.0); MEAN CORPUSCULAR HGB CONC 33 g/dl (33.0-37.0); MEAN PLATELET VOLUME 11.1 fl (7.4-10.4); PLATELET COUNT 149 K/mm3 (130-400); RED BLOOD COUNT 5.38 M/mm3 (4.20-5.60); REDCELL DISTRIBUTION WIDTH-CV 12.7 % (11.5-14.5)
[2020-05-07] MEDS ORDERED: NITROSTAT0.4 MG/TAB SL ×2 (10:17→14:37)
[2020-05-07] MEDS ORDERED: LIPITOR 40MG TA40 MG PO (10:17)
[2020-05-07] MEDS ORDERED: COZAAR 25MG25 MG/TAB PO (10:17)
[2020-05-07 10:19] LABS: PROTHROMBIN TIME 11.1 SECONDS (9.7-12.8)
[2020-05-07] MEDS ORDERED: PROAIR HFA0.09 MG/AC IH (10:19)
[2020-05-07] MEDS ORDERED: RT ALBUTER2.5 MG/0.5 IH (10:19)
[2020-05-07 10:21] LABS: CALCIUM 9.4 mg/dL (8.4-10.2); CREATININE, serum 0.83 (0.66-1.25); POTASSIUM 4.2 mmol/L (3.4-5.0)
[2020-05-07 10:22] LABS: PARTIAL THROMBOPLASTIN TIME 34.6 SECONDS (26.0-37.0)
--- NOTE | 2020-05-07 11:29 | NUR ---
SEE MERGE DOCUMENTATION FOR MEDICATION ADMINISTRATION AND INTRA/POST PROCEDURE SEDATION ASSESSMENTS. RIGHT HAND BARBEAU TEST POSITIVE.
[2020-05-07] MEDS ORDERED: TOPROL XL 50MG50 MG PO (14:38)
[2020-05-07] MEDS ORDERED: LASIX 40MG TABL40 MG PO (14:39)
--- NOTE | 2020-05-07 17:17 | NUR ---
Discharge instructions given to pt.Pt verbalizes understanding.INT removed,cathter tip intact.Right wrist and groin site observed clean,dry,intact and soft to touch.Pt escorted out via wheelchair by this nurse.
== END 2020-05-07 18:22 | disposition home or self-care (01) ==
LOC: COL.CAR 08:48
PROVIDERS: Internal Medicine Cardiovascular Disease
DX: I25.10 Atherosclerotic heart disease of native coronary artery without angina pectoris (principal); E78.5 Hyperlipidemia, unspecified; J44.9 Chronic obstructive pulmonary disease, unspecified; F17.210 Nicotine dependence, cigarettes, uncomplicated; I25.2 Old myocardial infarction; I49.9 Cardiac arrhythmia, unspecified; G47.33 Obstructive sleep apnea (adult) (pediatric); Z79.82 Long term (current) use of aspirin
CPT/HCPCS: J0690; J1644; J1940; J3010; Q9967

== ENCOUNTER 2020-12-16 05:54 | Emergency (ER) | payer MEDICARE ==
[~2020-12-16] VITALS: Ht 175.3 cm; Wt 109.1 kg
[~2020-12-16 05:54] MED LIST changes: +COZAAR 25MG25 MG/TAB PO
[2020-12-16 05:59] VITALS: TEMP 98.7
[2020-12-16 06:26] LABS: BASO # 0.1 (0.0-0.2); BASO % 0.8 % (0.0-2.0); EOS # 0.2 (0.0-0.7); EOS % 1.8 % (0-4.0); GRAN % 70.6 % (42.2-75.2); HEMATOCRIT 51.9 % (42.0-52.0); HEMOGLOBIN 16.9 g/dl (13.5-18.0); LYMPH # 1.5 (1.2-3.4); LYMPH % 18.2 % (20.0-51.0); MEAN CELL VOLUME 92 fl (80.0-100.0); MEAN CORPUSCULAR HEMOGLOBIN 30 pg (27.0-31.0); MEAN CORPUSCULAR HGB CONC 33 g/dl (33.0-37.0); MONO # 0.7 (0.1-0.6); MONO % 8.2 % (1.7-9.3); PLATELET COUNT 161 K/mm3 (130-400); RED BLOOD COUNT 5.62 M/mm3 (4.20-5.60); REDCELL DISTRIBUTION WIDTH-CV 13.2 % (11.5-14.5)
[2020-12-16 06:42] LABS: ALANINE AMINOTRANSFERASE 24 U/L (4-49); ALBUMIN 4.2 gm/dL (3.5-5.0); ALKALINE PHOSPHATASE 77 U/L (50-136); ANION GAP 7 mmol/L (7-16); AST,SGOT 28 U/L (15-37); BILIRUBIN,TOTAL 0.8 mg/dL (0.0-1.0); BLOOD UREA NITROGEN 13 mg/dL (9-20); CALCIUM 9.5 mg/dL (8.4-10.2); CARBON DIOXIDE 32 mmol/L (22-30); CHLORIDE 103 mmol/L (98-107); CREATININE, serum 0.87 (0.66-1.25); GLUCOSE 165 mg/dL (74-106); LIPASE 53 U/L (23-300); POTASSIUM 4.2 mmol/L (3.4-5.0); SODIUM 142 mmol/L (137-145)
[2020-12-16 06:55] LABS: TROPONIN-I < 0.012 ng/mL (0.000-0.035)
[2020-12-16 07:12] LABS: TSH w REFLEX 1.243 uIU/mL (0.350-4.940)
[2020-12-16] MEDS ORDERED: PREDNISONE20 MG PO (07:50)
[2020-12-16] MEDS ORDERED: ZITHROMAX Z PA250 MG PO (07:50)
[2020-12-16 08:27] VITALS: BP 128/74; PULSE 72
== END 2020-12-16 08:33 | disposition home or self-care (01) ==
LOC: COL.ER 05:54
PROVIDERS: Emergency Medicine
DX: J44.9 Chronic obstructive pulmonary disease, unspecified (principal); I50.9 Heart failure, unspecified; E78.5 Hyperlipidemia, unspecified; I25.2 Old myocardial infarction; Z79.899 Other long term (current) drug therapy; Z79.82 Long term (current) use of aspirin; Z20.822 Contact with and (suspected) exposure to COVID-19
CPT/HCPCS: J1100

== ENCOUNTER 2020-12-23 07:42 | Emergency (ER) | payer MEDICARE ==
[~2020-12-23] VITALS: Ht 175.3 cm; Wt 111.4 kg
[2020-12-23 07:50] VITALS: TEMP 98.3
[2020-12-23 08:35] LABS: BASO # 0.1 (0.0-0.2); BASO % 0.5 % (0.0-2.0); EOS # 0.2 (0.0-0.7); EOS % 1.3 % (0-4.0); GRAN # 9.1 (1.4-6.5); GRAN % 74.1 % (42.2-75.2); HEMOGLOBIN 17.3 g/dl (13.5-18.0); LYMPH # 2.1 (1.2-3.4); LYMPH % 17.2 % (20.0-51.0); MEAN CELL VOLUME 94 fl (80.0-100.0); MEAN CORPUSCULAR HEMOGLOBIN 30 pg (27.0-31.0); MEAN CORPUSCULAR HGB CONC 33 g/dl (33.0-37.0); MEAN PLATELET VOLUME 10.7 fl (7.4-10.4); MONO # 0.8 (0.1-0.6); MONO % 6.4 % (1.7-9.3); PLATELET COUNT 184 K/mm3 (130-400); REDCELL DISTRIBUTION WIDTH-CV 13.4 % (11.5-14.5)
[2020-12-23 08:41] LABS: HEMATOCRIT 53.3 % (42.0-52.0)
[2020-12-23 08:47] LABS: TRICYCLIC ANTIDEPRESS URINE NEGATIVE
[2020-12-23 09:10] LABS: ALANINE AMINOTRANSFERASE 22 U/L (0-55); ALBUMIN 3.7 gm/dL (3.5-5.0); ALKALINE PHOSPHATASE 89 U/L (0-750); ANION GAP 10 mmol/L; AST,SGOT 18 U/L (5-34); BILIRUBIN,TOTAL 0.3 mg/dL (0.2-1.2); BLOOD UREA NITROGEN 14 mg/dL (8-26); CALCIUM 9.2 mg/dL (8.4-10.2); CARBON DIOXIDE 26 mEq/L (22-29); CHLORIDE 106 mmol/L (98-107); CREATININE, serum 0.86 mg/dL (0.72-1.25); GLUCOSE 112 mg/dL (70-99); POTASSIUM 3.8 mmol/L (3.5-4.5); SODIUM 142 mmol/L (136-145); TOTAL PROTEIN 6.6 gm/dL (6.2-8.1)
[2020-12-23 09:15] LABS: ALCOHOL(ethanol),MEDICAL < 10 mg/dL (0-10)
[2020-12-23 12:13] VITALS: BP 105/51; PULSE 71
== END 2020-12-23 11:05 | disposition home or self-care (01) ==
LOC: COL.ER 07:42
PROVIDERS: Personal Emergency Response Attendant
DX: F32.9 Major depressive disorder, single episode, unspecified (principal); J44.9 Chronic obstructive pulmonary disease, unspecified; I50.9 Heart failure, unspecified; I25.2 Old myocardial infarction; F17.210 Nicotine dependence, cigarettes, uncomplicated; Z79.52 Long term (current) use of systemic steroids; Z79.82 Long term (current) use of aspirin; Z79.899 Other long term (current) drug therapy

== ENCOUNTER → 2020-12-31 | Outpatient (CLI) | payer MEDICARE ==
[~2020-12-31] MED LIST changes: +CARTIA XT180 MG PO; +KLOR-CON20 MEQ PO; +MOTRIN 600600 MG/TAB PO; +NORCO 325 MG-51 TAB PO
== END ==
LOC: COL.RAD 12:41
DX: Z12.2 Encounter for screening for malignant neoplasm of respiratory organs (principal); F17.210 Nicotine dependence, cigarettes, uncomplicated; J43.9 Emphysema, unspecified; I25.10 Atherosclerotic heart disease of native coronary artery without angina pectoris; I77.810 Thoracic aortic ectasia

== ENCOUNTER → 2021-01-27 | Outpatient (CLI) | payer MEDICARE | LOC: COL.RAD 07:17 | DX: K80.20 Calculus of gallbladder without cholecystitis without obstruction (principal) ==

== ENCOUNTER 2021-02-05 11:51 | Day surgery (SDC) | payer MEDICARE ==
[2021-02-05] VITALS (8 sets, daily range): BP systolic 114–134; BP diastolic 61–78; PULSE 71–86; TEMP 97.3–98.2
[~2021-02-05] VITALS: Ht 175.3 cm; Wt 108.7 kg
[~2021-02-05 11:51] MED LIST changes: -CARTIA XT180 MG PO; -KLOR-CON20 MEQ PO; -MOTRIN 600600 MG/TAB PO; -NORCO 325 MG-51 TAB PO
[2021-02-05] MEDS ORDERED: ASPIRIN E.C. 8181 MG PO (12:49)
[2021-02-05] MEDS ORDERED: DALIRESP500 MCG PO (12:54)
[2021-02-05] MEDS ORDERED: KLOR-CON20 MEQ PO (12:55)
[2021-02-05] MEDS ORDERED: CARTIA XT180 MG PO (12:56)
[2021-02-05] MEDS ORDERED: MOTRIN 600600 MG/TAB PO (16:32)
[2021-02-05] MEDS ORDERED: NORCO 325 MG-51 TAB PO (16:37)
--- NOTE | 2021-02-05 19:00 | NUR ---
PT WAS GIVEN DISCHARGE INSTRUCTIONS BY PREVIOUS NURSE GISSELLE. PTS IV SITE TO LEFT HAND DC'D BY GISSELLE CASEY. PT IS DRESSED AND WAITING FOR RIDE. PERSONAL BELONGINGS WITH PATIENT.
--- NOTE | 2021-02-05 19:55 | NUR ---
PT TAKEN VIA W/C TO PRIVATE CAR FOR DISCHARGE. PT HAS COPY OF DISCHARGE INSTRUCTIONS AND PERSONAL BELONGINGS WITH HIM. DENIES PAIN AT THIS TIME. ATE ALL OF DINNER PROVIDED.
== END 2021-02-05 19:55 | disposition home or self-care (01) ==
LOC: SDCO 11:51 → SURG 17:15 → SDCO 19:55
DX: K80.10 Calculus of gallbladder with chronic cholecystitis without obstruction (principal); I25.2 Old myocardial infarction; I50.22 Chronic systolic (congestive) heart failure; I11.0 Hypertensive heart disease with heart failure; I25.10 Atherosclerotic heart disease of native coronary artery without angina pectoris; I38 Endocarditis, valve unspecified; E66.9 Obesity, unspecified; J44.9 Chronic obstructive pulmonary disease, unspecified; M19.90 Unspecified osteoarthritis, unspecified site; E78.2 Mixed hyperlipidemia; R73.03 Prediabetes; D69.6 Thrombocytopenia, unspecified; G47.33 Obstructive sleep apnea (adult) (pediatric); F32.A Depression, unspecified; F17.210 Nicotine dependence, cigarettes, uncomplicated; F41.9 Anxiety disorder, unspecified; Z79.899 Other long term (current) drug therapy; Z68.39 Body mass index [BMI] 39.0-39.9, adult; Z79.82 Long term (current) use of aspirin
CPT/HCPCS: OP; J0690; J1100; J2405; J2704; J3010; J7030

== ENCOUNTER 2021-02-06 11:08 | Emergency (ER) | payer MEDICARE ==
[~2021-02-06] VITALS: Ht 175.3 cm; Wt 108.2 kg
[~2021-02-06 11:08] MED LIST changes: +CARTIA XT180 MG PO; +KLOR-CON20 MEQ PO; +MOTRIN 600600 MG/TAB PO; +NORCO 325 MG-51 TAB PO
[2021-02-06 11:21] VITALS: TEMP 98.1
[2021-02-06 13:09] VITALS: BP 116/69; PULSE 86
== END 2021-02-06 13:09 | disposition home or self-care (01) ==
LOC: COL.ER 11:08
DX: S30.1XXA Contusion of abdominal wall, initial encounter (principal); J44.9 Chronic obstructive pulmonary disease, unspecified; I25.2 Old myocardial infarction; Z90.49 Acquired absence of other specified parts of digestive tract; Z79.899 Other long term (current) drug therapy; X58.XXXA Exposure to other specified factors, initial encounter
CPT/HCPCS: J2270; J2405; J7030; Q9967

== ENCOUNTER 2022-01-31 06:33 | Day surgery (SDC) | payer MEDICARE, MEDICAID ==
[2022-01-31] VITALS (781 sets, daily range): BP systolic 115–126; BP diastolic 66–78; PULSE 61–67; TEMP 97.8–98.1; O2SAT 84–99
[~2022-01-31] VITALS: Ht 177.8 cm; Wt 96.3 kg
--- NOTE | 2022-01-31 08:00 | NUR ---
PT ARRIVES TO ICU FOR IV SOTALOL INITIATION. PT ALERT AND ORIENTED. STEADY GAIT. STATES HE IS TIRED. PT IS CHANGED INTO GOWN. HOOKED UP TO ICU MONITORING. SOTALOL ORDERS INITIATED. TWO IV SITES PLACED. VSS. LABS AND EKG COMPLETED.
[2022-01-31 08:37] LABS: CALCIUM 9.2 mg/dL (8.4-10.2); CREATININE, serum 0.83 mg/dL (0.72-1.25); MAGNESIUM 2.2 mg/dL (1.6-2.6); POTASSIUM 4.5 mmol/L (3.5-4.5)
--- NOTE | 2022-01-31 10:56 | NUR ---
organic lab worker met with patient to discuss discharge planning. Patient states he lives alone in [place] and has been independent with his activities of daily living, including driving. Patient states that his 17 year old daughter will soon be moving in with him. Patient states his primary care provider is Dr Draper and that he has oxygen and a CPap at home through [facility]. patient states that he has Medicare A/B and Medicaid and that they, along with samples of Trilogy from Dr Cabello's office, his medications are obtainable. Patient states he wishes to complete advance directives and worker provides written and verbal information for patient. Worker offered to assist with completed of directives. Patient plans to discharge home without concerns at this time.
[2022-01-31] MEDS ORDERED: LIPITOR 40MG TA40 MG PO (14:32)
[2022-01-31] MEDS ORDERED: CYMBALTA 60MG60 MG PO (14:33)
--- NOTE | 2022-01-31 14:42 | NUR ---
PT IS CURRENTLY RESTING IN BED WITHOUT COMPLAINT. PT SLEEPS BETWEEN DISTURBS. CALL LIGHT IN REACH.
--- NOTE | 2022-01-31 19:00 | NUR ---
PT RESTING IN BED WATCHING TV. VSS. PT HAS CALL LIGHT WITHIN REACH AND INSTRUCTED TO CALL [facility] ALL NEEDS.
[2022-02-01] VITALS (475 sets, daily range): BP systolic 115; BP diastolic 81; PULSE 60–63; TEMP 98; O2SAT 85–97
[2022-02-01 06:12] LABS: BASO # 0.1 K/mm3 (0.0-0.2); BASO % 0.7 % (0.0-2.0); EOS # 0.1 K/mm3 (0.0-0.7); EOS % 1.7 % (0.0-4.0); GRAN # 5.5 K/mm3 (1.4-6.5); GRAN % 68.3 % (42.2-75.2); HEMOGLOBIN 17.6 g/dl (13.5-18.0); LYMPH # 1.7 K/mm3 (1.2-3.4); LYMPH % 20.9 % (20.0-51.0); MEAN CELL VOLUME 95 fl (80.0-100.0); MEAN CORPUSCULAR HEMOGLOBIN 30 pg (27-31); MEAN CORPUSCULAR HGB CONC 32 g/dl (33.0-37.0); MEAN PLATELET VOLUME 11.2 fl (7.4-10.4); MONO # 0.7 K/mm3 (0.1-0.6); MONO % 8.2 % (1.7-9.3); PLATELET COUNT 134 K/mm3 (130-400)
[2022-02-01 06:19] LABS: CALCIUM 9.1 mg/dL (8.4-10.2); CREATININE, serum 0.83 mg/dL (0.72-1.25); HEMATOCRIT 54.8 % (42.0-52.0); MAGNESIUM 2.1 mg/dL (1.6-2.6); POTASSIUM 4.9 mmol/L (3.5-4.5)
[2022-02-01] MEDS ORDERED: BETAPACE 80MG80 MG PO (08:46)
--- NOTE | 2022-02-01 09:20 | NUR ---
PT LEFT AMBULATORY TO PT OWN CAR IN PARKING LOT. ALL QUESTINS ANSWERES, ALL EDUCATIN GIVEN, PT LEFT WITH ALL BELONGINS.
--- NOTE | 2022-02-01 09:42 | NUR ---
PT STATED THAT THEY WANT TO TAKE THEIR OWN MEDS AT HOME.
== END 2022-02-01 09:30 | disposition home or self-care (01) ==
LOC: EUO 06:33 → ICU 06:33 → EUO 11:52
PROVIDERS: Internal Medicine Interventional Cardiology
DX: I48.0 Paroxysmal atrial fibrillation (principal); F17.210 Nicotine dependence, cigarettes, uncomplicated; I47.1 Supraventricular tachycardia; I77.810 Thoracic aortic ectasia; I10 Essential (primary) hypertension; Z98.890 Other specified postprocedural states
CPT/HCPCS: OP; C9482; J7050

== ENCOUNTER 2022-05-18 11:41 | Emergency (ER) | payer MEDICARE, MEDICAID ==
[~2022-05-18] VITALS: Ht 177.8 cm; Wt 100.0 kg
[~2022-05-18 11:41] MED LIST changes: +BETAPACE 80MG80 MG PO; +CYMBALTA 60MG60 MG PO
[2022-05-18 11:46] VITALS: TEMP 98
[2022-05-18 12:47] LABS: BASO # 0.1 K/mm3 (0.0-0.2); BASO % 0.7 % (0.0-2.0); EOS # 0.2 K/mm3 (0.0-0.7); GRAN # 5.9 K/mm3 (1.4-6.5); GRAN % 68.8 % (42.2-75.2); HEMATOCRIT 50.8 % (42.0-52.0); HEMOGLOBIN 16.7 g/dl (13.5-18.0); LYMPH # 1.6 K/mm3 (1.2-3.4); LYMPH % 18.2 % (20.0-51.0); MEAN CELL VOLUME 95 fl (80.0-100.0); MEAN CORPUSCULAR HEMOGLOBIN 31 pg (27-31); MEAN CORPUSCULAR HGB CONC 33 g/dl (33.0-37.0); MONO # 0.9 K/mm3 (0.1-0.6); MONO % 10.1 % (1.7-9.3); PLATELET COUNT 141 K/mm3 (130-400); RED BLOOD COUNT 5.36 M/mm3 (4.20-5.60); REDCELL DISTRIBUTION WIDTH-CV 12.9 % (11.5-14.5)
[2022-05-18 13:04] LABS: ALANINE AMINOTRANSFERASE 20 U/L (0-55); ALBUMIN 3.9 gm/dL (3.5-5.0); ALKALINE PHOSPHATASE 76 U/L (40-150); ANION GAP 11 mmol/L (7-16); AST,SGOT 19 U/L (5-34); BILIRUBIN,TOTAL 0.7 mg/dL (0.2-1.2); BLOOD UREA NITROGEN 7 mg/dL (8-26); CALCIUM 9.8 mg/dL (8.4-10.2); CARBON DIOXIDE 29 mmol/L (22-29); CHLORIDE 102 mmol/L (98-107); CREATININE, serum 0.81 mg/dL (0.72-1.25); GLUCOSE 102 mg/dL (70-99); POTASSIUM 4.3 mmol/L (3.5-4.5); SODIUM 142 mmol/L (136-145); TOTAL PROTEIN 6.9 gm/dL (6.2-8.1)
[2022-05-18 13:05] LABS: TROPONIN-I < 0.010 ng/mL (0.00-0.033)
[2022-05-18 16:30] VITALS: BP 130/84; PULSE 71
== END 2022-05-18 16:30 | disposition home or self-care (01) ==
LOC: COL.ER 11:41
PROVIDERS: Nurse Practitioner
DX: R00.2 Palpitations (principal); I48.91 Unspecified atrial fibrillation; I25.2 Old myocardial infarction; F17.210 Nicotine dependence, cigarettes, uncomplicated; Z86.79 Personal history of other diseases of the circulatory system; Z98.61 Coronary angioplasty status; Z28.310 Unvaccinated for COVID-19; Z79.899 Other long term (current) drug therapy